=== PATIENT | male | born 1970 | race Caucasian/White ===

== ENCOUNTER 2017-05-18 23:39 | Emergency (ER) | payer BC ==
[~2017-05-18] VITALS: Ht 182.9 cm; Wt 104.3 kg
[2017-05-19] MEDS ORDERED: MORPHINE SULFATE 4 MG/ML DISP.SYRIN. IV/SQ PRN (00:30)
[2017-05-19 00:58] LABS: INR 0.9 (0.8-1.1); PROTHROMBIN TIME PATIENT 11.9 SEC (11.7-14.0)
[2017-05-19 00:59] LABS: CALCIUM 9.1 mg/dL (8.5-10.1); CREATININE 1.1 mg/dL (0.7-1.3); GFR 72.1; POTASSIUM 3.6 mmol/L (3.5-5.1)
[2017-05-19 01:00] LABS: BASO # 0.1 x10^3/uL (0.0-0.2); BASO % 1 % (0-3); EOS % 2 % (0-3); HEMATOCRIT 41.7 % (39.0-53.0); HEMOGLOBIN 14.4 g/dL (13.0-17.5); LYMPH # 2.7 x10^3/uL (1.0-4.8); LYMPH % 25 % (24-48); MEAN CORPUSCULAR HEMOGLOBIN 32 pg (25-35); MEAN CORPUSCULAR HGB CONC 35 g/dL (31-37); MEAN CORPUSCULAR VOLUME 92 fL (79-100); MONO % 10 % (0-9); NEUT % 62 % (31-73); PLATELET COUNT 232 x10^3/uL (140-400); RED BLOOD COUNT 4.51 x10^6/uL (4.30-5.70); WHITE BLOOD COUNT 10.9 x10^3/uL (4.0-11.0)
[2017-05-19 01:02] LABS: ALBUMIN 3.8 g/dL (3.4-5.0); TOTAL BILIRUBIN 0.3 mg/dL (0.2-1.0); TOTAL PROTEIN 7.5 g/dL (6.4-8.2)
--- NOTE | 2017-05-19 01:26 | RAD ---
CT head without contrast TECHNIQUE: [address] imaging skull base to vertex. HISTORY: Headache, clumsiness, family history of aneurysm. FINDINGS: At the foramen magnum there is indistinct homogeneous density filling the entirety of the dural sac, while this could be an artifact from the adjacent skull base given absence of artifact within the surrounding soft tissues or bones, pathologic density filling the dural sac at this location such as subacute isodense hemorrhage surrounding the brainstem versus enlargement of the brainstem due to a mass or cerebellar tonsil descent through the foramen magnum due to Chiari malformation cannot be excluded. No acute intracranial hemorrhage. No definable intracranial mass. No hydrocephalus. No infarction. No acute ischemic changes evident. Orbits, mastoids, paranasal sinuses and bones are unremarkable. IMPRESSION: Indistinct homogeneous density at the foramen magnum filling the dural sac. While this may be an artifact, density due to a Chiari malformation with density from cerebellar tonsils compressing the brainstem at the foramen magnum, versus subacute isodense hemorrhage surrounding the brainstem contributing to density, or enlargement of the brainstem due to a mass resulting in increased density cannot be excluded. This could be further characterized by MR imaging. Exposure: One or more of the following individualized dose reduction techniques were utilized for this examination: 1. Automated exposure control 2. Adjustment of the mA and/or kV according to patient size 3. Use of iterative reconstruction technique Electronically signed by: Kraig Ndiaye MD (05/19/2017 1:23 AM) [facility]
[2017-05-19] MEDS ORDERED: GADOBUTROL 10 MMOL/10 ML VIAL IV ONE (03:30)
--- NOTE | 2017-05-19 04:56 | RAD ---
Exam: MRI brain without and with contrast. MRI cervical spine without and with contrast. HISTORY: Headache, right-sided weakness, blurred vision, abnormal CT findings of the brain stem. TECHNIQUE: Multiplanar MRI sequences of the brain and cervical spine acquired without and with 10 mL gadolinium this intravenous contrast. COMPARISON: CT head June 06. MRI brain findings: No acute infarction. No diffusion-weighted signal abnormality in the brain. 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 Numerous scattered subcentimeter T2-weighted hyperintense lesions of the cerebral white matter predominantly involving the frontal lobes. No hydrocephalus. No intracranial hemorrhage, mass, hydrocephalus, extra-axial fluid collections or infarction. Intracranial vascular flow voids are intact. No pathologic intracranial enhancement. Orbits and mastoids are unremarkable. Right maxillary sinus cyst. MRI brain impression: 1. No acute abnormality. 2. Chiari I malformation. This represents the density in question at the foramen magnum on the prior CT study. 3. Scattered small nonenhancing cerebral white matter lesions predominantly involving the frontal lobes. These are nonspecific although given the predominant frontal lobe involvement could be indicative of chronic migraine headaches. Chronic microvascular ischemic disease or a demyelinating disease would also be considerations. MRI cervical spine findings: Cervical vertebral body height and alignment intact. Cervical vertebral body height and alignment intact. No bone marrow edema. No cervical spinal cord syrinx, cord lesion or mass. Paraspinal tissues are unremarkable. Diffuse disc desiccation no pathologic enhancement of the cervical spine. Degenerative changes are described below. C2-C3: Unremarkable. C3-C4: Shallow disc bulge. No spinal canal or neural foraminal stenosis. C4-C5: Small central focal disc protrusion. No spinal canal or neural foraminal stenosis. C5-C6: Mild ligament flavum buckling. Moderate focal central disc protrusion. Disc protrusion abuts the ventral spinal cord and contributes to mild spinal canal stenosis dural sac diameter 9.5 mm. Neural foramina patent. C6-C7: Mild disc osteophyte and uncovertebral osteophytes with superimposed central shallow focal disc protrusion and mild ligamentum flavum buckling. Mild spinal canal stenosis dural sac diameter 10 mm. Neural foramina patent. C7-T1: Unremarkable. IMPRESSION: 1. Chiari I malformation. No cervical spinal cord syringohydromyelia. 2. Cervical disc disease with mild spinal canal stenoses at C5-C6 and C6-C7 as described above. Electronically signed by: Kraig Ndiaye MD (05/19/2017 4:52 AM) [email or web address]
[2017-05-19] MEDS ORDERED: METH4TAB2 PO (06:28)
--- NOTE | 2017-05-19 06:28 | PHYS DOC ---
Past Medical History Past Medical History: Other Additional Past Medical Histor: VT/PVC Past Surgical History: Other Additional Past Surgical Histo: STENT Additional Information: 0.5 PPD Alcohol Use: Occasionally Drug Use: None Adult General Chief Complaint Chief Complaint: HEADACHE HPI HPI Patient is a 46 year old male who presents with headache & clumsiness. the patient reports 3 day history of symptoms. He has dull throbbing headache to left temporal region as well as to top of head. Not sudden in onset or worst headache of his life, but unusual for him to have headaches. He reports right hand clumsiness over past 3 days, frequently dropping things & having difficulty typing at work. He denies fevers/chills, neck stiffness, vision changes, extremity numbness/weakness. Denies chest pain or shortness of breath. He has history of recent ND s/p cardiac stent placement now taking Brilinta. Review of Systems Review of Systems Constitutional: Denies fever or chills Eyes: Denies change in visual acuity HENT: Denies nasal congestion or sore throat Respiratory: Denies cough or shortness of breath Cardiovascular: Denies chest pain or edema GI: Denies abdominal pain, nausea, vomiting : Denies dysuria or hematuria Musculoskeletal: Denies back pain or joint pain Integument: Denies rash or skin lesions Neurologic: Reports headache and clumsiness as described in history of present illness Current Medications Current Medications Current Medications Medications (Trade) Dose Ordered Sig/Julissa Start Time Stop Time Status Last Admin Dose Admin Gadobutrol (Gadavist) 10 mmol 1X ONCE 05/19/17 03:30 05/19/17 03:34 DC 05/19/17 04:02 10 MMOL Morphine Sulfate 4 mg PRN Q15MIN PRN 05/19/17 00:30 05/19/17 06:44 DC 05/19/17 01:10 4 MG Allergies Allergies Allergies Coded Allergies Type Severity Reaction Last Updated Verified atorvastatin Allergy Unknown Unknown 05/19/17 Yes rosuvastatin Allergy Unknown Unknown 05/19/17 Yes Physical Exam Physical Exam Constitutional: Well developed, well nourished, no acute distress, non-toxic appearance. HENT: Normocephalic, atraumatic, bilateral external ears normal, oropharynx moist, nose normal. No sinus tenderness Eyes: PERRLA, EOMI, conjunctiva normal, no discharge. Neck: supple, no stridor. No meningismus Cardiovascular: RRR, no murmurs, no edema. Lungs & Thorax: LCTAB, no wheezing, no respiratory distress. Abdomen: soft, nontender, nondistended. Skin: Warm, dry, no erythema, no rash. Back: No tenderness. Extremities: No tenderness, no edema. Neurologic: Alert and oriented X 3, cranial C through 12 grossly intact, symmetric strength and sensation upper and lower extremities, intact finger to nose and heel to peck, no palmar drift, no focal deficits noted. Psychologic: Affect normal, judgement normal, mood normal. Current Patient Data Vital Signs Vital Signs Date Time Temp Pulse Resp B/P (MAP) Pulse Ox O2 Delivery O2 Flow Rate FiO2 05/19/17 06:31 55 16 133/85 (101) 98 Room Air 05/18/17 23:55 97.6 97.6 Lab Values Laboratory Tests Test 05/19/17 00:10 White Blood Count 10.9 x10^3/uL (4.0-11.0) Red Blood Count 4.51 x10^6/uL (4.30-5.70) Hemoglobin 14.4 g/dL (13.0-17.5) Hematocrit 41.7 % (39.0-53.0) Mean Corpuscular Volume 92 fL (79-100) Mean Corpuscular Hemoglobin 32 pg (25-35) Mean Corpuscular Hemoglobin Concent 35 g/dL (31-37) Red Cell Distribution Width 14.0 % (11.5-14.5) Platelet Count 232 x10^3/uL (140-400) Neutrophils (%) (Auto) 62 % (31-73) Lymphocytes (%) (Auto) 25 % (24-48) Monocytes (%) (Auto) 10 % (0-9) H Eosinophils (%) (Auto) 2 % (0-3) Basophils (%) (Auto) 1 % (0-3) Neutrophils # (Auto) 6.7 x10^3uL (1.8-7.7) Lymphocytes # (Auto) 2.7 x10^3/uL (1.0-4.8) Monocytes # (Auto) 1.1 x10^3/uL (0.0-1.1) Eosinophils # (Auto) 0.3 x10^3/uL (0.0-0.7) Basophils # (Auto) 0.1 x10^3/uL (0.0-0.2) Prothrombin Time 11.9 SEC (11.7-14.0) Prothrombin Time INR 0.9 (0.8-1.1) PTT 33 SEC (24-38) Sodium Level 141 mmol/L (136-145) Potassium Level 3.6 mmol/L (3.5-5.1) Chloride Level 104 mmol/L (98-107) Carbon Dioxide Level 24 mmol/L (21-32) Anion Gap 13 (6-14) Blood Urea Nitrogen 13 mg/dL (8-26) Creatinine 1.1 mg/dL (0.7-1.3) Estimated GFR (Cockcroft-Gault) 72.1 BUN/Creatinine Ratio 12 (6-20) Glucose Level 119 mg/dL (70-99) H Calcium Level 9.1 mg/dL (8.5-10.1) Total Bilirubin 0.3 mg/dL (0.2-1.0) Aspartate Amino Transferase (AST) 22 U/L (15-37) Alanine Aminotransferase (ALT) 32 U/L (16-63) Alkaline Phosphatase 82 U/L (46-116) Troponin I Quantitative < 0.017 ng/mL (0.000-0.055) Total Protein 7.5 g/dL (6.4-8.2) Albumin 3.8 g/dL (3.4-5.0) Albumin/Globulin Ratio 1.0 (1.0-1.7) Laboratory Tests 05/19/17 00:10 Laboratory Tests 05/19/17 00:10 EKG EKG Interpreted by me: Normal sinus rhythm rate 69, no acute ST or T wave changes, normal intervals, PVC [] Radiology/Procedures Radiology/Procedures Chest x-ray: Interpreted by me: Cardiomegaly, no infiltrate, no pneumothorax, no acute process. PROCEDURE: CT HEAD WO CONTRAST CT head without contrast TECHNIQUE: [address] imaging skull base to vertex. HISTORY: Headache, clumsiness, family history of aneurysm. FINDINGS: At the foramen magnum there is indistinct homogeneous density filling the entirety of the dural sac, while this could be an artifact from the adjacent skull base given absence of artifact within the surrounding soft tissues or bones, pathologic density filling the dural sac at this location such as subacute isodense hemorrhage surrounding the brainstem versus enlargement of the brainstem due to a mass or cerebellar tonsil descent through the foramen magnum due to Chiari malformation cannot be excluded. No acute intracranial hemorrhage. No definable intracranial mass. No hydrocephalus. No infarction. No acute ischemic changes evident. Orbits, mastoids, paranasal sinuses and bones are unremarkable. IMPRESSION: Indistinct homogeneous density at the foramen magnum filling the dural sac. While this may be an artifact, density due to a Chiari malformation with density from cerebellar tonsils compressing the brainstem at the foramen magnum, versus subacute isodense hemorrhage surrounding the brainstem contributing to density, or enlargement of the brainstem due to a mass resulting in increased density cannot be excluded. This could be further characterized by MR imaging. Exposure: One or more of the following individualized dose reduction techniques were utilized for this examination: 1. Automated exposure control 2. Adjustment of the mA and/or kV according to patient size 3. Use of iterative reconstruction technique Electronically signed by: Terri Ndiaye MD (05/19/2017 1:23 AM) [facility] DICTATED and SIGNED BY: TERRI NDIAYE MD DATE: 05/19/17 0117 PROCEDURE: BRAIN WO/W CONTRAST Exam: MRI brain without and with contrast. MRI cervical spine without and with contrast. HISTORY: Headache, right-sided weakness, blurred vision, abnormal CT findings of the brain stem. TECHNIQUE: Multiplanar MRI sequences of the brain and cervical spine acquired without and with 10 mL gadolinium this intravenous contrast. COMPARISON: CT head June 06. MRI brain findings: No acute infarction. No diffusion-weighted signal abnormality in the brain. 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 Numerous scattered subcentimeter T2-weighted hyperintense lesions of the cerebral white matter predominantly involving the frontal lobes. No hydrocephalus. No intracranial hemorrhage, mass, hydrocephalus, extra-axial fluid collections or infarction. Intracranial vascular flow voids are intact. No pathologic intracranial enhancement. Orbits and mastoids are unremarkable. Right maxillary sinus cyst. MRI brain impression: 1. No acute abnormality. 2. Chiari I malformation. This represents the density in question at the foramen magnum on the prior CT study. 3. Scattered small nonenhancing cerebral white matter lesions predominantly involving the frontal lobes. These are nonspecific although given the predominant frontal lobe involvement could be indicative of chronic migraine headaches. Chronic microvascular ischemic disease or a demyelinating disease would also be considerations. MRI cervical spine findings: Cervical vertebral body height and alignment intact. Cervical vertebral body height and alignment intact. No bone marrow edema. No cervical spinal cord syrinx, cord lesion or mass. Paraspinal tissues are unremarkable. Diffuse disc desiccation no pathologic enhancement of the cervical spine. Degenerative changes are described below. C2-C3: Unremarkable. C3-C4: Shallow disc bulge. No spinal canal or neural foraminal stenosis. C4-C5: Small central focal disc protrusion. No spinal canal or neural foraminal stenosis. C5-C6: Mild ligament flavum buckling. Moderate focal central disc protrusion. Disc protrusion abuts the ventral spinal cord and contributes to mild spinal canal stenosis dural sac diameter 9.5 mm. Neural foramina patent. C6-C7: Mild disc osteophyte and uncovertebral osteophytes with superimposed central shallow focal disc protrusion and mild ligamentum flavum buckling. Mild spinal canal stenosis dural sac diameter 10 mm. Neural foramina patent. C7-T1: Unremarkable. IMPRESSION: 1. Chiari I malformation. No cervical spinal cord syringohydromyelia. 2. Cervical disc disease with mild spinal canal stenoses at C5-C6 and C6-C7 as described above. Electronically signed by: Terri Ndiaye MD (05/19/2017 4:52 AM) [facility] DICTATED and SIGNED BY: TERRI NDIAYE MD DATE: 05/19/17 0436 [] Course & Med Decision Making Course & Med Decision Making Pertinent Labs and Imaging studies reviewed. (See chart for details) The patient presents with headache and neurologic symptoms. No focal abnormalities on exam. Obtained CT head which is abnormal as detailed above. Consulted with Dr. Gardiner of neurosurgery who recommends emergent MRI as disposition could very significantly based on actual nature of the lesion. MRI was called in and obtained emergently. There was a significant delay while obtaining MRI and waiting for results. Ultimately shown to have Chiari I malformation. Again discussed with Dr. Gardiner who reviewed the images himself. He recommended that this could be managed as an outpatient, likely no benefit in hospital admission at this time as he will need significant cardiac clearance and elimination of risk factors before consideration of surgery. He can be seen as an outpatient in the clinic if he called to make an appointment this week. Dr. Gardiner recommends Medrol Dosepak which was provided a prescription. I consulted to answer all questions to the best of my ability with patient and his . Recommend return to the emergency department for severe sudden onset headache, focal neurologic deficit, uncontrolled vomiting, any otherwise worsening condition. Discharged home in stable condition. Dragon Disclaimer Dragon Disclaimer This electronic medical record was generated, in whole or in part, using a voice recognition dictation system. Departure Departure Impression: Primary Impression: Chiari I malformation Additional Impression: Headache Disposition: HOME, SELF-CARE Condition: STABLE Referrals: RON GOTTI MD (PCP) HADLEY GARDINER MD Patient Instructions: Chiari Malformation Additional Instructions: You were seen in the ED today for headache. Your MRI showed chiari malformation. See attached handout. Please take steroids as prescribed. Call for follow up appointment with Dr. Gardiner. Come back for worst headache of your life, numbness or weakness in arms or legs, severe confusion, any otherwise worsening condition. Scripts Methylprednisolone (MEDROL) 4 Mg Tab.ds.pk 1 PKG PO UD, #1 PKG Prov: BEENA WHITAKER MD 05/19/17 Problem Qualifiers BEENA WHITAKER MD May 19, 2017 06:28
[2017-05-19 06:31] VITALS: BP 133/85
--- NOTE | 2017-05-19 07:20 | RAD ---
Portable chest, 05/19/2017: History: Headache The heart size and pulmonary vascularity are normal. No pulmonary infiltrates are seen. There is no evidence of pleural fluid. IMPRESSION: No acute cardiopulmonary abnormality is detected.
--- NOTE | 2017-05-19 13:24 | EKG ---
[facility] [address] [place] [address] Test Date: 2017-05-18 Test Time: 23:49:18 Pat Name: TEN HOWARD Department: Room: Gender: M Geophysical Drafter: : 1970 Requested By: BEENA WHITAKER Order Number: [id number] Reading MD: Santo Rubio Measurements Intervals [place] Rate: 69 P: 52 AR: 176 QRS: 31 QRSD: 102 T: 24 QT: 380 QTc: 409 Interpretive Statements SINUS RHYTHM VENTRICULAR PREMATURE COMPLEX(ES) RI6.01 Unconfirmed report No previous ECG available for comparison Electronically Signed On 05-20-2017 15:39:18 CDT by Santo Rubio
== END 2017-05-19 06:44 | disposition home or self-care (01) ==
LOC: ER 23:39
DX: G93.5 Compression of brain (principal); I49.3 Ventricular premature depolarization; F17.200 Nicotine dependence, unspecified, uncomplicated; I25.2 Old myocardial infarction; Z88.8 Allergy status to other drugs, medicaments and biological substances; Z95.5 Presence of coronary angioplasty implant and graft
CPT/HCPCS: 36415; 70450; 70553; 71010; 72156; 80053; 84484; 85027; 85610; 85730; 93005; 96374; 96375; 99285; A9585; C1887; J2270